=== PATIENT | female | born 1995 | race Two or more races ===

== ENCOUNTER 2018-09-21 18:50 | Emergency (ER) | payer MEDICAID, OTHER ==
[~2018-09-21] VITALS: Ht 160 cm; Wt 81.6 kg
[2018-09-21 21:46] LABS: Urine Bacteria NONE SEEN /hpf (None Seen); Urine Blood Negative /uL (Negative); Urine Specific Gravity 1.006 (1.001-1.035); Urine WBC 2 /hpf (0 - 5)
[2018-09-22 03:00] VITALS: BP 119/77
== END 2018-09-22 03:25 | disposition home or self-care (01) ==
LOC: ER 18:56
DX: Z32.01 Encounter for pregnancy test, result positive (principal)
CPT/HCPCS: 36415; 81001; 81025; 84702